=== PATIENT | female | born 1940 | race Caucasian/White ===

== ENCOUNTER 2018-09-13 12:32 | Inpatient (IN) | payer BC, MEDICARE ==
[~2018-09-13] VITALS: Ht 167.6 cm; Wt 89.8 kg
--- NOTE | 2018-09-13 12:45 | NUR ---
aaox3, SENT BY PMD TO ER, C/O DYSPNEA X 1 WEEK, RECENT SURGICAL PROCEDURE BLADDER SURGERY (BLADDER CANCER); 08/21/2018 ([facility]). Tachypneic and slightly labored. Skin is warm and non diaphoretic. Placed on hospital gown, monitor and NC at 2l/min. Dr Aguilar at BS for eval.
[2018-09-13] MEDS ORDERED: IV NS 0.9% 1,000 ML BAG IV ONE (13:00)
[2018-09-13] MEDS ORDERED: FOLI1TAB16 PO (13:01)
[2018-09-13] MEDS ORDERED: ATOR10TA PEG (13:01)
[2018-09-13] MEDS ORDERED: TIOT18CA3 IH (13:01)
[2018-09-13] MEDS ORDERED: MYRBETRIQ PO (13:01)
[2018-09-13] MEDS ORDERED: RANI150T8 PO (13:01)
[2018-09-13] MEDS ORDERED: ALBU18HF2 IH (13:01)
[2018-09-13] MEDS ORDERED: FLUT1DIS5 IH (13:01)
[2018-09-13] MEDS ORDERED: SITA100T PO (13:01)
[2018-09-13] MEDS ORDERED: LORA10TA7 PO (13:01)
[2018-09-13] MEDS ORDERED: BENA40TA8 PO (13:01)
[2018-09-13] MEDS ORDERED: LEVO100T9 PO (13:01)
[2018-09-13] MEDS ORDERED: DOCU-141 PO (13:01)
[2018-09-13 13:11] LABS: BASOPHILS % (AUTO) 0.2 % (0.0-2.0); EOSINOPHILS % (AUTO) 0.2 % (0.0-6.0); HEMATOCRIT 39 % (33-45); HEMOGLOBIN 12.7 g/dL (11.5-14.8); LYMPHOCYTES # (AUTO) 0.5 /CMM (0.8-4.8); MEAN CORPUSCULAR HGB CONC 33 g/dl (31.0-36.0); MEAN CORPUSCULAR VOLUME 92 fL (82-100); MONOCYTES # (AUTO) 0.4 /CMM (0.1-1.30); MONOCYTES % (AUTO) 3.2 % (2.0-12.0); NEUTROPHILS # (AUTO) 11.8 /CMM (1.8-8.9); NEUTROPHILS % (AUTO) 92.4 % (43.0-81.0); PLATELET COUNT (AUTO) 295 /CMM (150-450); RED BLOOD CELL COUNT(AUTO) 4.17 MIL/uL (4.0-5.2); WHITE BLOOD COUNT (AUTO) 12.7 K/uL (4.3-11.0)
[2018-09-13 13:18] LABS: CALCIUM, SERUM 9.5 mg/dL (8.5-10.1); CARBON DIOXIDE 22 mmol/L (21-32); CHLORIDE 105 mmol/L (98-107); CREATININE 1.5 mg/dL (0.6-1.3); GLUCOSE 180 mg/dL (74-106); POTASSIUM 4.4 mmol/L (3.5-5.1); SODIUM SERUM 140 mmol/L (136-145); UREA NITROGEN, BLOOD 30 mg/dL (7-18)
[2018-09-13 13:30] LABS: D-DIMER 1.34 mg/L(FEU (0.17-0.50)
[2018-09-13 13:37] LABS: ALANINE AMINOTRANSFERASE 24 U/L (12-78); ALBUMIN 3.9 g/dL (3.4-5.0); ALKALINE PHOSPHATASE 89 U/L (46-116); ASPARTATE AMINOTRANSFERASE 15 U/L (15-37); B-TYPE NATRIURETIC PEPTIDE 153 PG/ML (0-125); BILIRUBIN,DIRECT 0.1 mg/dL (0.0-0.2); BILIRUBIN,TOTAL 0.5 mg/dL (0.2-1.0); TOTAL PROTEIN, SERUM 7.6 g/dL (6.4-8.2)
--- NOTE | 2018-09-13 14:14 | NUR ---
Patient c/o SOB on exertion, ambulates about 25m. Addendum: 09/13/[address] at [address] Villarreal made aware.
[2018-09-13] MEDS ORDERED: IPRATROPIUM NEB FS 0.5 MG/2.5 ML AMPUL.NEB NEB ONE (14:30)
[2018-09-13] MEDS ORDERED: methylPREDNISolone SOD SUCC 125 MG/2ML VIAL IV ONE (14:30)
[2018-09-13] MEDS ORDERED: ALBUTEROL FS 2.5 MG/3 ML VIAL.NEB NEB ONE (14:30)
[2018-09-13] MEDS ORDERED: methylPREDNISolone SOD SUCC 125 MG/2ML VIAL ONE (14:38)
[2018-09-13] MEDS ORDERED: IPRATROPIUM NEB FS 0.5 MG/2.5 ML AMPUL.NEB ONE (14:42)
[2018-09-13] MEDS ORDERED: ALBUTEROL FS 2.5 MG/3 ML VIAL.NEB ONE (14:42)
--- NOTE | 2018-09-13 14:45 | NUR ---
Breathing treatment at
--- NOTE | 2018-09-13 14:58 | NUR ---
Called komal, licensed nuclear control room operator and states that the isotopes will arrive in 20 minutes.
--- NOTE | 2018-09-13 15:22 | NUR ---
CALLED FOR TELE BED, TURNED IN MOVE SHEET
--- NOTE | 2018-09-13 15:32 | NUR ---
Patient transported for VQ scan via gurney. Patient remains in stable condition at this time.
--- NOTE | 2018-09-13 15:44 | NUR ---
TELE-BED 102
--- NOTE | 2018-09-13 16:05 | NUR ---
Report given to YOBANY Avila for REINALDO Rm 102
[2018-09-13] MEDS ORDERED: IV NS 0.9% 1,000 ML IV PRN (17:14)
[2018-09-13] MEDS ORDERED: HYDROCODONE/APAP 5/325MG 1 EACH TABLET PO PRN (17:30)
[2018-09-13] MEDS ORDERED: MAGNESIUM HYDROXIDE 30 ML UDC PO PRN (17:30)
[2018-09-13] MEDS ORDERED: ONDANSETRON HCL/PF 4 MG/2 ML VIAL IVP PRN (17:30)
[2018-09-13] MEDS ORDERED: Z GUARD REMEDY 2 OZ OINT TP PRN (17:30)
[2018-09-13] MEDS ORDERED: MAG HYDROX/AL HYDROX/SIMETH 30 ML UDC PO PRN (17:30)
[2018-09-13] MEDS: LORATADINE 10 MG TABLET PO SCH (18:00)
--- NOTE | 2018-09-13 18:00 | NUR ---
RN NOTES PATIENT WOULD NOT TAKE THE MEDICATION X3. EXPLAINED RISK AND BENEFITS. PATIENT STATE " I ALREADY TOOK THIS MEDICATION THIS MORNING". WILL CONTINUE TO MONITOR.
--- NOTE | 2018-09-13 18:10 | NUR ---
RN NOTES PATIENT CAME TO THE UNIT FROM ER ACCOMPANIED BY THE ER NURSE. PATIENT ALERT AND ORIENTED X4. PATIENT NOTED WITH RIGHT AC IV ACCESS. PATENT AND FLUSHING WELL. NO PAIN OR ACUTE DISTRESS AT THIS TIME. NO SOB. RESPIRATION EVEN AND UNLABORED. SKIN IS DRY WARM TO TOUCH. PT PLACED ON FIBERGLASS BOAT PARTS FINISHER. NOTED WITH NORMAL SINUS RHYTHM. ALL NEEDS ANTICIPATED. KEPT CLEAN AND DRY. CALL LIGHT WITHIN REACHED. WILL CONTINUE TO MONITOR.
--- NOTE | 2018-09-13 18:30 | NUR ---
RN NOTES PATIENT ALERT AND ORIENTED X4. SPOKE TO PATIENT ABOUT CODE STATUS. PATIENT STATED THAT SHE WANTED TO BE DNR. PATIENT WILL BE SIGNING THE POLST THAT WILL BE PLACED IN THE CHART.
--- NOTE | 2018-09-13 18:50 | NUR ---
RN NOTES PATIENT CONTINUES TO REMAIN IN STABLE CONDITION. PATIENT WAS ABLE TO PROVIDE INFORMATION REGARDING ADMISSIONS. ALL NEEDS ANTICIPATED. CALL LIGHT WITHIN REACHED. BED IS LOCKED AND IN LOWEST POSITION. SAFETY MEASURES OBSERVED. WILL CONTINUE TO MONITOR. ENDORSED TO PM NURSE FOR REPORT AND REINALDO.
[2018-09-13] MEDS: IPRATROPIUM NEB FS 0.5 MG/2.5 ML AMPUL.NEB NEB SCH (19:31)
[2018-09-13] MEDS: ALBUTEROL FS 2.5 MG/0.5 ML VIAL.NEB NEB SCH (19:32)
[2018-09-13 20:00] VITALS: BP 120/66
--- NOTE | 2018-09-13 20:32 | NUR ---
RN OPENING PM NOTES: PT IS A AND 0 TIMES 4. NO ACUTE DISTRESS CURRENTLY. PT IS 2 LITERS CURRENTLY. PATIENT CONTINUES TO REMAIN IN STABLE CONDITION. PATIENT WAS ABLE TO PROVIDE INFORMATION REGARDING ADMISSIONS. ALL NEEDS ANTICIPATED. CALL LIGHT WITHIN REACHED. BED IS LOCKED AND IN LOWEST POSITION. SAFETY MEASURES OBSERVED. WILL CONTINUE TO MONITOR. WILL MONITER AND GIVE ALL PM MEDS.
[2018-09-13] MEDS: FAMOTIDINE (20 MG) 20 MG TABLET PO SCH (20:50)
[2018-09-13] MEDS: HEPARIN SODIUM, PORCINE 5000 UNITS/1 ML VIAL SQ SCH (20:57)
[2018-09-13] MEDS: ACETAMINOPHEN 325 MG TABLET PO PRN (21:13)
[2018-09-13 22:39] VITALS: BP 120/66
[2018-09-14] VITALS: BP 136/73
[2018-09-14 04:00] VITALS: BP 133/70
--- NOTE | 2018-09-14 06:16 | NUR ---
RN CLOSING AM NOTES: PT IS A AND 0 TIMES 4. NO ACUTE DISTRESS CURRENTLY. PT IS 2 LITERS CURRENTLY. PATIENT CONTINUES TO REMAIN IN STABLE CONDITION. PT IS SOB DURING EPISODES TO USE THE RESTROOM. ROXANNE AT 0612 SHOWS ECG WITH NORMAL SINUS RYTHM WITH POSSIBLE PREMATURE ATRIAL COMPLEXES WITH AERRANT CONDUCTION OTHERWISE NORMAL ECG. ALL NEEDS MET. CALL LIGHT WITHIN REACHED. BED IS LOCKED AND IN LOWEST POSITION. SAFETY MEASURES OBSERVED. WILL CONTINUE TO MONITOR ALL PM MEDS GIVEN. CONSENT PENDING FOR CODE STATUS TO BE SIGNED BY DOCTOR. WILL ENDORSE TO AM SHIFT TO CONTINUE PLAN OF CARE
[2018-09-14] MEDS: IPRATROPIUM NEB FS 0.5 MG/2.5 ML AMPUL.NEB NEB SCH ×3 (07:08→19:42)
[2018-09-14] MEDS: ALBUTEROL FS 2.5 MG/0.5 ML VIAL.NEB NEB SCH ×3 (07:08→19:41)
--- NOTE | 2018-09-14 07:23 | NUR ---
CASHIER OR CHECKER STOCK CLERK NOTE PATIENT IN BED ALERT,ORIENTEDX4, NO ACUTE DISTRESS CURRENTLY. PT IS 2 LITERS CURRENTLY. PATIENT CONTINUES TO REMAIN IN STABLE CONDITION. ON BREATHING TX AT THIS TIME NEEDS MET. CALL LIGHT WITHIN REACHED. BED IS LOCKED AND IN LOWEST POSITION. SAFETY MEASURES OBSERVED. WILL CONTINUE TO MONITOR . CONSENT PENDING FOR CODE STATUS TO BE SIGNED BY DOCTOR. ,RT AC HL INTACT . ON IVF ORDERED, PLAN OF CARE DISCUSSED WITH PATIENT
[2018-09-14 07:43] LABS: CALCIUM, SERUM 8.7 mg/dL (8.5-10.1); CARBON DIOXIDE 20 mmol/L (21-32); CHLORIDE 110 mmol/L (98-107); CREATININE 1.4 mg/dL (0.6-1.3); GLUCOSE 128 mg/dL (74-106); POTASSIUM 4.6 mmol/L (3.5-5.1); SODIUM SERUM 141 mmol/L (136-145); UREA NITROGEN, BLOOD 35 mg/dL (7-18)
[2018-09-14 07:47] LABS: MAGNESIUM 1.9 mg/dL (1.8-2.4); PHOSPHORUS 3.3 mg/dL (2.5-4.9)
[2018-09-14] MEDS: LEVOTHYROXINE SODIUM 100 MCG TABLET PO SCH (07:47)
[2018-09-14 07:52] LABS: BASOPHILS % (AUTO) 0.1 % (0.0-2.0); EOSINOPHILS % (AUTO) 0.1 % (0.0-6.0); HEMATOCRIT 34 % (33-45); HEMOGLOBIN 10.8 g/dL (11.5-14.8); LYMPHOCYTES # (AUTO) 0.8 /CMM (0.8-4.8); MEAN CORPUSCULAR HGB CONC 32 g/dl (31.0-36.0); MEAN CORPUSCULAR VOLUME 95 fL (82-100); MONOCYTES # (AUTO) 0.8 /CMM (0.1-1.30); MONOCYTES % (AUTO) 9.7 % (2.0-12.0); NEUTROPHILS # (AUTO) 6.9 /CMM (1.8-8.9); NEUTROPHILS % (AUTO) 81.1 % (43.0-81.0); PLATELET COUNT (AUTO) 221 /CMM (150-450); RED BLOOD CELL COUNT(AUTO) 3.56 MIL/uL (4.0-5.2); WHITE BLOOD COUNT (AUTO) 8.5 K/uL (4.3-11.0)
[2018-09-14 08:00] VITALS: BP_SYST 133; BP_DIAS 72; BP_DIAS 77
[2018-09-14] MEDS: FOLIC ACID 1 MG TABLET PO SCH (08:07)
[2018-09-14] MEDS: ATORVASTATIN 10 MG TABLET PEG SCH (08:08)
[2018-09-14] MEDS: DOCUSATE SODIUM 100 MG CAPSULE PO SCH ×2 (08:08→16:34)
[2018-09-14] MEDS: BENAZEPRIL HCL 20 MG TABLET PO SCH (08:09)
[2018-09-14] MEDS: LINAGLIPTIN 5 MG TABLET PO SCH (08:10)
[2018-09-14] MEDS: FAMOTIDINE (20 MG) 20 MG TABLET PO SCH ×2 (08:10→21:39)
[2018-09-14] MEDS: methylPREDNISolone SOD SUCC 40 MG/ML VIAL IV SCH ×3 (08:10→16:34)
[2018-09-14] MEDS: FLUTICASONE/VILANTEROL 1 EACH BLST.W.DEV IH SCH (08:15)
[2018-09-14] MEDS: HEPARIN SODIUM, PORCINE 5000 UNITS/1 ML VIAL SQ SCH ×2 (08:17→21:40)
[2018-09-14] MEDS: [Myrbetriq] 50 MG PO SCH (08:18)
[2018-09-14] MEDS: LORATADINE 10 MG TABLET PO SCH (08:19)
[2018-09-14] MEDS ORDERED: TIOTROPIUM BROMIDE 6 CAP/BOX CAP.W.DEV IH SCH (09:00)
[2018-09-14 09:34] LABS: CHOLESTEROL 138 mg/dL (<200); HDL CHOLESTEROL 62 mg/dL (40-60); LDL 60 mg/dL (0-99); THYROID STIMULATING HORMONE 0.611 uIU/mL (0.358-3.74); TRIGLYCERIDES 68 mg/dL (30-150)
[2018-09-14] MEDS: IV NS 0.9% 1,000 ML IV PRN ×2 (10:05→20:45)
--- NOTE | 2018-09-14 10:12 | NUR ---
ROADWAY DESIGNER NOTE SEEN BY DR KAUR AND SIMRAN SPRING RN BASE BRANDER BOTH AWARE THAT PATIENT STILL COUGHING AND HAS SOB UPON EXERTION
[2018-09-14 12:00] VITALS: BP 138/73
--- NOTE | 2018-09-14 12:04 | NUR ---
CHOKER HOOKER NOTE DOPPLEX BOTH LEGS DONE , CONT ON IVF ABLE TO AMBULATED WELL WITH O2
[2018-09-14] MEDS: LEVOFLOXACIN 500 MG /D5W 100ML 500 MG in PREMIX 1 EA IV SCH (12:10)
--- NOTE | 2018-09-14 15:00 | NUR ---
senior telecommunications specialist note new hl on lt fa, yamini 22 inserted with good blood return
[2018-09-14 16:00] VITALS: BP_SYST 138; BP_SYST 142; BP_DIAS 70; BP_DIAS 73
--- NOTE | 2018-09-14 16:42 | NUR ---
ELEMENTARY LIBRARIAN NOTE ASSISTED TO BSC, ABLE TO URINAE WELL, KEEP CLAN DRY , CONT ON IVF ORDERED ,WILL CONT TO MONITOR CLOSELY
--- NOTE | 2018-09-14 18:36 | NUR ---
ZOOLOGY TEACHER NOTE HAVING DINNER , ABLE TO EAT SELF , ON 2L NC OF O2 ORDERED ,NO SOB AT THIS TIME NOTED ,FAMILY AT BEDSIDE WILL CONT TO MONITOR CLOSELY
--- NOTE | 2018-09-14 19:00 | NUR ---
RN NOTES RECEIVED PATIENT,STABLE ,AWAKE,ALERT,CONVERSES, COHERENT AND APPROPRIATE ,NOT IN NAY DISTRESS ATB REST WITH O2 VIA NASAL CANNULA ,BUT ADMITS TO STILL GETS A LITTLE SHORT OF BREATH ON EXERTION. DENIES ANY PAIN. COMFORT CARE DONE ,NEEDS ATTENDED. ABLE TO GET UP OOB TO THE COMMODE INDEPENDENTLY.
[2018-09-14 20:00] VITALS: BP 144/81
[2018-09-14] MEDS: ACETAMINOPHEN 325 MG TABLET PO PRN (21:47)
[2018-09-15 04:00] VITALS: BP 132/73
[2018-09-15] MEDS: IV NS 0.9% 1,000 ML IV PRN ×2 (04:07→15:37)
--- NOTE | 2018-09-15 06:00 | NUR ---
RN NOTES STABLE ALL NIGHT ,ABLE TO SLEEP WELL, NO SOB NOTED BUT STILL ADMITS TO GETTING A LITTLE SHORT OF BREATH WHEN GETTING UP TO THE BATHROOM,STILL O2 DEPENDENT WITH NASAL CANNULA 2-3 L/MIN. DENIES ANY PAIN.
--- NOTE | 2018-09-15 07:00 | NUR ---
REPORT GIVEN TO DANIEL HAYWOOD,PATIENT REMAINS STABLE
--- NOTE | 2018-09-15 07:23 | NUR ---
DRIER UNLOADER NOTE PATIENT IN BED ALERT,ORIENTEDX4, NO ACUTE DISTRESS CURRENTLY. PATIENT ON BREATHING TX AT THIS TIME NEEDS MET. CALL LIGHT WITHIN REACHED. BED IS LOCKED AND IN LOWEST POSITION. SAFETY MEASURES OBSERVED. WILL CONTINUE TO MONITOR . FOR CODE STATUS LT FA HL INTACT . ON IVF ORDERED, PLAN OF CARE DISCUSSED WITH PATIENT ,ON TELE MONITOR ST HR 104 ,WILL CONT TO MONITOR CLOSELY
[2018-09-15] MEDS: ALBUTEROL FS 2.5 MG/0.5 ML VIAL.NEB NEB SCH ×3 (07:28→20:19)
[2018-09-15] MEDS: IPRATROPIUM NEB FS 0.5 MG/2.5 ML AMPUL.NEB NEB SCH ×3 (07:29→20:19)
[2018-09-15] MEDS: LEVOTHYROXINE SODIUM 100 MCG TABLET PO SCH (07:35)
[2018-09-15 08:00] VITALS: BP 120/75
[2018-09-15] MEDS: HEPARIN SODIUM, PORCINE 5000 UNITS/1 ML VIAL SQ SCH ×2 (08:23→20:10)
[2018-09-15] MEDS: [Myrbetriq] 50 MG PO SCH (08:24)
[2018-09-15] MEDS: FAMOTIDINE (20 MG) 20 MG TABLET PO SCH ×2 (08:26→20:10)
[2018-09-15] MEDS: DOCUSATE SODIUM 100 MG CAPSULE PO SCH ×2 (08:26→16:22)
[2018-09-15] MEDS: FOLIC ACID 1 MG TABLET PO SCH (08:26)
[2018-09-15] MEDS: LORATADINE 10 MG TABLET PO SCH (08:26)
[2018-09-15] MEDS: ATORVASTATIN 10 MG TABLET PEG SCH (08:26)
[2018-09-15] MEDS: BENAZEPRIL HCL 20 MG TABLET PO SCH (08:26)
[2018-09-15] MEDS: methylPREDNISolone SOD SUCC 40 MG/ML VIAL IV SCH ×3 (08:27→16:22)
[2018-09-15] MEDS: LINAGLIPTIN 5 MG TABLET PO SCH (08:27)
[2018-09-15] MEDS: FLUTICASONE/VILANTEROL 1 EACH BLST.W.DEV IH SCH (08:30)
[2018-09-15 09:11] LABS: BASOPHILS % (AUTO) 0.2 % (0.0-2.0); EOSINOPHILS % (AUTO) 0.1 % (0.0-6.0); HEMATOCRIT 34 % (33-45); HEMOGLOBIN 11.1 g/dL (11.5-14.8); LYMPHOCYTES # (AUTO) 0.9 /CMM (0.8-4.8); MEAN CORPUSCULAR HGB CONC 32 g/dl (31.0-36.0); MEAN CORPUSCULAR VOLUME 93 fL (82-100); MONOCYTES # (AUTO) 0.9 /CMM (0.1-1.30); MONOCYTES % (AUTO) 11.1 % (2.0-12.0); NEUTROPHILS % (AUTO) 76.6 % (43.0-81.0); PLATELET COUNT (AUTO) 222 /CMM (150-450); WHITE BLOOD COUNT (AUTO) 7.8 K/uL (4.3-11.0)
[2018-09-15 09:56] LABS: ALBUMIN 3.1 g/dL (3.4-5.0); ALKALINE PHOSPHATASE 68 U/L (46-116); ASPARTATE AMINOTRANSFERASE 8 U/L (15-37); BILIRUBIN,TOTAL 0.3 mg/dL (0.2-1.0); CALCIUM, SERUM 8.5 mg/dL (8.5-10.1); CARBON DIOXIDE 25 mmol/L (21-32); CHLORIDE 110 mmol/L (98-107); CREATININE 1.2 mg/dL (0.6-1.3); GLUCOSE 107 mg/dL (74-106); MAGNESIUM 1.8 mg/dL (1.8-2.4); PHOSPHORUS 3.1 mg/dL (2.5-4.9); POTASSIUM 3.8 mmol/L (3.5-5.1); SODIUM SERUM 143 mmol/L (136-145); UREA NITROGEN, BLOOD 26 mg/dL (7-18)
[2018-09-15 10:16] LABS: ALANINE AMINOTRANSFERASE 20 U/L (12-78)
--- NOTE | 2018-09-15 10:16 | NUR ---
DIESEL PILE HAMMER OPERATOR NOTE SEEN BY SIMRAN SPRING RN COLLEGE BASKETBALL COACH WITH ORDER NEOSPORIN OINT FOR INCISION SITE ON LOWER ABDOMEN ,AWARE THAT PATIENT T STLL COUGH BUT CANT COUGH UP
[2018-09-15] MEDS: LEVOFLOXACIN 500 MG /D5W 100ML 500 MG in PREMIX 1 EA IV SCH (11:30)
[2018-09-15 12:00] VITALS: BP 130/82
[2018-09-15] MEDS ORDERED: LEVOFLOXACIN (500MG) 500 MG TABLET PO SCH (12:00)
--- NOTE | 2018-09-15 12:00 | NUR ---
ARCHITECTURAL ASSOCIATE NOTE HAVING LUNCH , ABLE TO EAT SELF NOT IN DIESTRUS
[2018-09-15] MEDS: ACETYLCYSTEINE 10% SOLN 400 MG/4 ML VIAL NEB SCH ×2 (15:27→23:22)
--- NOTE | 2018-09-15 15:45 | NUR ---
IMPORTER OR EXPORTER NOTE ON BREATHING TX BY RT , CONT ON IVF ORDERED ,ALL NEEDS ATTENDED ,WILL CONT TO MONITOR CLOSELY
[2018-09-15 16:00] VITALS: BP_SYST 135; BP_SYST 150; BP_DIAS 70; BP_DIAS 76
--- NOTE | 2018-09-15 17:45 | NUR ---
MOLD FINISHER NOTE CONT ON IVF NOT IN DISTRESS , ALL NEEDS ATTENDED, CALL LIGHT WITHIN IN REACH
--- NOTE | 2018-09-15 18:33 | NUR ---
telemedicine physician note ambulated well with o2. no sob noted at this time
--- NOTE | 2018-09-15 19:25 | NUR ---
VULCAN CREWMEMBER OPENING NOTES PATIENT IN BED, ALERT AND ORIENTED X4. ON OXYGEN 2L VIA NC, NO SOB/ACUTE DISTRESS NOTED. DENIES ANY PAIN. ON TELE MONITOR SR WITH HR 69. IV SITE LEFT FA 22G, IV FLUID RUNNING ORDERED, TOLERATING WELL, NO SIGNS OF INFECTION/INFILTRATION NOTED, SITE C/D/I. CALL LIGHT WITHIN REACHED. BED IS LOCKED AND IN LOWEST POSITION. SAFETY MEASURES MAINTAINED. WILL CONTINUE TO MONITOR. WILL CONT TO MONITOR CLOSELY.
[2018-09-15 20:00] VITALS: BP 144/89
[2018-09-16] VITALS: BP 140/67
[2018-09-16] MEDS: IV NS 0.9% 1,000 ML IV PRN ×3 (01:39→18:13)
[2018-09-16 04:00] VITALS: BP 141/70
--- NOTE | 2018-09-16 06:57 | NUR ---
PORTABLE IRRIGATION OPERATOR CLOSING NOTES PATIENT IN BED, ALERT AND ORIENTED X4. ON OXYGEN 2L VIA NC, NO SOB/ACUTE DISTRESS NOTED. DENIES ANY PAIN. ON TELE MONITOR SR WITH HR 60S. IV SITE LEFT FA 22G, IV FLUID RUNNING ORDERED, TOLERATING WELL, NO SIGNS OF INFECTION/INFILTRATION NOTED, SITE C/D/I. CALL LIGHT WITHIN REACH. BED IS LOCKED AND IN LOWEST POSITION. SAFETY MEASURES MAINTAINED. NO ACUTE CHANGES THROUGHOUT SHIFT. ALL MD ORDERS ATTENDED. ALL PATIENT NEEDS ANTICIPATED AND MET. ENDORSED TO AM RN FOR REINALDO.
--- NOTE | 2018-09-16 07:00 | NUR ---
RN NOTES RECEIVE PT ON BED, A/OX4, ON 2L O2 N/C . RESPIRATION EVEN AND UNLABORED, ON TELE SR HR IN 60'S , DENIES ANY DISTRESS, LEFT FA IV SITE G 22 , CLEAN, DRY AND INTACT WITH NS AT 125CC/HR RUNNING , T CALL LIGHT WITHIN EASY REACH. BED IS LOCKED AND IN LOWEST POSITION. SAFETY MEASURES MAINTAINED. WILL CONTINUE TO MONITOR CLOSELY.
[2018-09-16 07:38] LABS: CALCIUM, SERUM 8.3 mg/dL (8.5-10.1); CARBON DIOXIDE 22 mmol/L (21-32); CHLORIDE 111 mmol/L (98-107); CREATININE 1.1 mg/dL (0.6-1.3); GLUCOSE 101 mg/dL (74-106); POTASSIUM 3.9 mmol/L (3.5-5.1); SODIUM SERUM 145 mmol/L (136-145); UREA NITROGEN, BLOOD 23 mg/dL (7-18)
[2018-09-16] MEDS: ACETYLCYSTEINE 10% SOLN 400 MG/4 ML VIAL NEB SCH ×3 (07:50→20:55)
[2018-09-16] MEDS: ALBUTEROL FS 2.5 MG/0.5 ML VIAL.NEB NEB SCH ×3 (07:50→20:55)
[2018-09-16] MEDS: IPRATROPIUM NEB FS 0.5 MG/2.5 ML AMPUL.NEB NEB SCH ×3 (07:50→20:55)
[2018-09-16 08:00] VITALS: BP 145/75
[2018-09-16] MEDS: HEPARIN SODIUM, PORCINE 5000 UNITS/1 ML VIAL SQ SCH ×2 (08:11→20:57)
[2018-09-16] MEDS: LEVOTHYROXINE SODIUM 100 MCG TABLET PO SCH (08:12)
[2018-09-16] MEDS: FAMOTIDINE (20 MG) 20 MG TABLET PO SCH ×2 (08:12→20:56)
[2018-09-16] MEDS: BENAZEPRIL HCL 20 MG TABLET PO SCH (08:16)
[2018-09-16] MEDS: DOCUSATE SODIUM 100 MG CAPSULE PO SCH ×2 (08:17→16:26)
[2018-09-16] MEDS: methylPREDNISolone SOD SUCC 40 MG/ML VIAL IV SCH ×3 (08:17→16:26)
[2018-09-16] MEDS: ATORVASTATIN 10 MG TABLET PEG SCH (08:17)
[2018-09-16] MEDS: LORATADINE 10 MG TABLET PO SCH (08:17)
[2018-09-16] MEDS: LINAGLIPTIN 5 MG TABLET PO SCH (08:17)
[2018-09-16] MEDS: FOLIC ACID 1 MG TABLET PO SCH (08:17)
[2018-09-16] MEDS: NEOMY SULF/BACITRAC ZN/POLY 15 GM TUBE TP SCH (08:19)
[2018-09-16] MEDS: [Myrbetriq] 50 MG PO SCH (08:19)
[2018-09-16] MEDS: FLUTICASONE/VILANTEROL 1 EACH BLST.W.DEV IH SCH (08:19)
--- NOTE | 2018-09-16 11:00 | NUR ---
RN NOTES RA O2 SAT 88%, PT LEFT ON 2L O2 N/C , O2 SAT 93% ON 2L O2 .
[2018-09-16 12:00] VITALS: BP 141/71
[2018-09-16] MEDS: LEVOFLOXACIN (500MG) 500 MG TABLET PO SCH (12:03)
--- NOTE | 2018-09-16 14:00 | NUR ---
RN NOTES PT OUT OF BED TO BSC , TOLERATING WELL , CONTINUE TO MONITOR.
[2018-09-16] MEDS: BUDESONIDE RESPULE INH 0.25 MG/2 ML AMPUL.NEB NEB SCH ×2 (14:03→20:56)
[2018-09-16 16:00] VITALS: BP 115/64
--- NOTE | 2018-09-16 18:24 | NUR ---
RN NOTES NO SIGNIFICANT CHANGES NOTED ON THIS SHIFT , WILL ENDORSE TO GAS MAIN AND LINE FITTER NURSE FOR CONTINUITY OF CARE .
--- NOTE | 2018-09-16 19:32 | NUR ---
NUTRITIONAL SERVICES COOK NOTE PATIENT RECEIVED IN BED A/O X 4. PATIENT HAS NO S/S OF ACUTE DISTRESS. PATIENT CURRENTLY ON 2L NC C/O OF MINOR SOB. PATIENT IN BED HOB HIGH WATCHING TV. PATIENT IS SR ON THE MONITOR. PATIENT DENIES CHEST PAIN. PATIENT HAS LFA 22 G RUNNING 125 ML/HR NO S/S OF INFILTRATION AND INFECTION. SAFETY PRECAUTIONS IN PLACE. BED IN LOWEST LOCKED POSITION RN WILL CONTINUE TO MONITOR FOR CHANGES.
--- NOTE | 2018-09-16 19:48 | NUR ---
SPECIAL PROCEDURE TECH NOTES PATIENT C/O THAT SHE HASN'T HAD A BOWEL MOVEMENT IN 36 HOURS, PATIENT HAS A DOSE OF COLACE IN THE AFTERNOON. RN GAVE HER PRUNE JUICE AND ENCOURAGE FLUIDS. RN OFFERED AMBULATION. PATIENT REFUSED. RN WILL CONTINUE TO MONITOR.
[2018-09-16 20:00] VITALS: BP 128/75
[2018-09-17] VITALS (7 sets, daily range): BP systolic 131–176; BP diastolic 54–93
[2018-09-17] MEDS: IV NS 0.9% 1,000 ML IV PRN ×2 (04:20→14:27)
--- NOTE | 2018-09-17 06:43 | NUR ---
ELECTRICAL MANAGER NOTE NO ACUTE CHANGES THROUGHOUT THE NIGHT. ALL CARE RENDERED. NO S/S OF DISTRESS. WILL ENDORSE POC TO AM SHIFT FOR REINALDO.
[2018-09-17 07:06] LABS: BASOPHILS % (AUTO) 0.2 % (0.0-2.0); EOSINOPHILS % (AUTO) 0.1 % (0.0-6.0); HEMATOCRIT 36 % (33-45); LYMPHOCYTES % (AUTO) 10.6 % (20.0-44.0); MEAN CORPUSCULAR HGB CONC 33 g/dl (31.0-36.0); MEAN CORPUSCULAR VOLUME 93 fL (82-100); MONOCYTES # (AUTO) 0.9 /CMM (0.1-1.30); MONOCYTES % (AUTO) 9.5 % (2.0-12.0); NEUTROPHILS # (AUTO) 7.6 /CMM (1.8-8.9); NEUTROPHILS % (AUTO) 79.6 % (43.0-81.0); PLATELET COUNT (AUTO) 194 /CMM (150-450); RED BLOOD CELL COUNT(AUTO) 3.89 MIL/uL (4.0-5.2); WHITE BLOOD COUNT (AUTO) 9.5 K/uL (4.3-11.0)
[2018-09-17 07:19] LABS: CALCIUM, SERUM 8.5 mg/dL (8.5-10.1); CARBON DIOXIDE 23 mmol/L (21-32); CHLORIDE 111 mmol/L (98-107); GLUCOSE 123 mg/dL (74-106); POTASSIUM 4.2 mmol/L (3.5-5.1); SODIUM SERUM 145 mmol/L (136-145); UREA NITROGEN, BLOOD 25 mg/dL (7-18)
[2018-09-17] MEDS: IPRATROPIUM NEB FS 0.5 MG/2.5 ML AMPUL.NEB NEB SCH ×3 (08:15→19:46)
[2018-09-17] MEDS: ALBUTEROL FS 2.5 MG/0.5 ML VIAL.NEB NEB SCH ×3 (08:15→19:47)
[2018-09-17] MEDS: BUDESONIDE RESPULE INH 0.25 MG/2 ML AMPUL.NEB NEB SCH ×2 (08:15→19:47)
[2018-09-17] MEDS: ACETYLCYSTEINE 10% SOLN 400 MG/4 ML VIAL NEB SCH ×2 (08:15→14:50)
--- NOTE | 2018-09-17 08:52 | NUR ---
WOUND CARE CONSULT: PT PRESENTS WITH HEALED INCISION TO ABDOMEN, PRESENT ON ADMISSION. PT IS CONTINENT AND AMBULATORY. WILL SEE PRN.
--- NOTE | 2018-09-17 10:55 | NUR ---
Patient request for as needed medication for constipation. Increase of water intake encouragement by nurse practitioner. Patient verbalizes understanding. Eduardo Gilbert RN
[2018-09-17] MEDS: LEVOTHYROXINE SODIUM 100 MCG TABLET PO SCH (13:49)
[2018-09-17] MEDS: [Myrbetriq] 50 MG PO SCH (13:49)
[2018-09-17] MEDS: FOLIC ACID 1 MG TABLET PO SCH (13:50)
[2018-09-17] MEDS: ATORVASTATIN 10 MG TABLET PEG SCH (13:50)
[2018-09-17] MEDS: ACETAMINOPHEN 325 MG TABLET PO PRN (13:50)
[2018-09-17] MEDS: LORATADINE 10 MG TABLET PO SCH (13:51)
[2018-09-17] MEDS: LEVOFLOXACIN (500MG) 500 MG TABLET PO SCH (13:51)
[2018-09-17] MEDS: BENAZEPRIL HCL 20 MG TABLET PO SCH (13:51)
[2018-09-17] MEDS: FAMOTIDINE (20 MG) 20 MG TABLET PO SCH (13:51)
[2018-09-17] MEDS: methylPREDNISolone SOD SUCC 40 MG/ML VIAL IV SCH ×3 (13:52→17:51)
[2018-09-17] MEDS: LINAGLIPTIN 5 MG TABLET PO SCH (13:52)
[2018-09-17] MEDS: DOCUSATE SODIUM 100 MG CAPSULE PO SCH ×2 (13:54→17:51)
[2018-09-17] MEDS: FLUTICASONE/VILANTEROL 1 EACH BLST.W.DEV IH SCH (13:54)
[2018-09-17] MEDS: HEPARIN SODIUM, PORCINE 5000 UNITS/1 ML VIAL SQ SCH (13:59)
--- NOTE | 2018-09-17 14:22 | NUR ---
ROOM AIR SAT AT REST 86%,OBTAINED ORDER FOR HOME O2,CM NOTIFIED
[2018-09-17] MEDS: NEOMY SULF/BACITRAC ZN/POLY 15 GM TUBE TP SCH (14:30)
--- NOTE | 2018-09-17 18:55 | NUR ---
Patient refused wound care pictures. Eduardo Gilbert RN
--- NOTE | 2018-09-17 19:22 | NUR ---
Endorsed to night RN for continuity. Eduardo Gilbert RN
--- NOTE | 2018-09-17 20:24 | NUR ---
RN MS NOTES RECEIVED PT IN BED, AWAITING BREATHING TX TO BE DISCHARGED, BREATHING TREATMENT RECEIVED, DC PAPERS SIGNED, MEDS RETURNED FROM PHARMACY. NI IV LINES PRESENT. PT ESCORTED OUT WITH WHEEL CHAIR AN 02 TANK TO TAKE HOME.
== END 2018-09-17 20:40 | disposition home or self-care (01) | DRG 682 ==
LOC: ER 12:40 → TELE1 15:56
PROVIDERS: ADMIT Nurse Practitioner Acute Care; ATTEND Nurse Practitioner Acute Care
DX: I12.9 Hypertensive chronic kidney disease with stage 1 through stage 4 chronic kidney disease, or unspecified chronic kidney disease (principal); J96.01 Acute respiratory failure with hypoxia; N17.0 Acute kidney failure with tubular necrosis; I50.33 Acute on chronic diastolic (congestive) heart failure; J44.1 Chronic obstructive pulmonary disease with (acute) exacerbation; N18.4 Chronic kidney disease, stage 4 (severe); J44.0 Chronic obstructive pulmonary disease with (acute) lower respiratory infection; J20.9 Acute bronchitis, unspecified; Z98.890 Other specified postprocedural states; E78.5 Hyperlipidemia, unspecified; E11.22 Type 2 diabetes mellitus with diabetic chronic kidney disease; E03.9 Hypothyroidism, unspecified; K21.9 Gastro-esophageal reflux disease without esophagitis; Z87.891 Personal history of nicotine dependence; Z80.3 Family history of malignant neoplasm of breast; Z79.51 Long term (current) use of inhaled steroids; Z79.84 Long term (current) use of oral hypoglycemic drugs; C67.9 Malignant neoplasm of bladder, unspecified; Z90.49 Acquired absence of other specified parts of digestive tract
CPT/HCPCS: 36415; 71045-TC; 78582; 80048-TC; 80053-TC; 80061-TC; 80076-TC; 83735-TC; 83880; 84100-TC; 84443-TC; 84484-TC; 85025-TC; 85378-TC; 85730-TC; 87081-TC; 93307-TC; 93970-TC; 94761-TC; 94799-TC; 97116-TC; 97530-TC; A4216; A6402; A9540; A9567; G0378; J1644; J1956; J2405; J2920; J2930; J7030